=== PATIENT | female | born 1990 | race African-American/Black ===

== ENCOUNTER 2016-02-17 10:27 | Emergency (ER) ==
--- NOTE | 2016-02-17 11:42 | PROVIDER DOCUMENTATION ---
HPI-General Adult - General Chief Complaint: Back Pain Stated Complaint: RIGHT SIDE OF BODY HURTS Time Seen by Provider: 02/17/16 10:51 Source: patient Allergies/Adverse Reactions: Patient Allergies Allergy/AdvReac Type Severity Reaction Status Date / Time No Known Allergies Allergy Verified 09/30/15 00:20 - History of Present Illness -Gen Adult Nature of Presenting Problems: Pt. is 26 yof that presents with c/o low back pain and right side pain. Pt. reports symptoms began two days ago. Pt. denies any injury and reports she is currently on her period. Pt. reports the pain is sharp and is worse when she is lying flat and when she takes a deep breath. Location of Pain/Injury: reports: back. denies: head, face, mouth, neck, chest , upper extremity, hand(s), abdomen, pelvis, genitalia, lower extremity, feet, upper body, lower body, generalized Pain Radiation: reports: flank (R) Quality of Pain: reports: sharp. denies: aching, burning, cramping, dull, fullness, indigestion, pressure, stabbing, tearing, throbbing, tightness Severity: reports: moderate. denies: mild, severe Onset/Duration: reports: abrupt, 2 days ago Timing: reports: still present. denies: improving, gone now, resolved prior to arrival, intermittent, constant, changing over time, getting worse Context/Activities at Onset: reports: none. denies: recent emotional stress, recent physical stress, recent trauma history, possible bad food, cold exposure , out of country travel Modifying Factors: improves with: nothing Associated Symptoms: reports: back/neck pain, pain with inspiration. denies: anxiety, arm pain, chest pain, constipation, cough, diaphoresis, diarrhea, dizziness, EENT symptoms, fatigue, fever/chills, genitourinary problems, headaches, heartburn, joint pain, loss of appetite, malaise, muscle aches, sinus congestion/drainage, nausea, rash, seizure, shortness of breath, sensory/ motor loss, swelling/mass in abdomen, syncope, vomiting, weakness, trouble walking Similar Symptoms Previously?: Yes Recently seen or treated by another doctor?: No Review of Systems - Adult - REVIEW OF SYSTEMS - ADULT Constitutional: reports: see HPI. denies: chills, fever, fatique Eyes: reports: see HPI. denies: discharge, blurred vision, double vision, eye pain Ears, Nose, Mouth & Throat: reports: see HPI. denies: ear pain, nose pain, loose teeth, mouth swelling, throat swelling Cardiovascular: reports: see HPI. denies: chest pain, edema, irregular heart rate, palpitations, syncope Respiratory: reports: see HPI. denies: chronic cough, cough, dyspnea on exertion, pleurisy, shortness of breath, wheezing Gastrointestinal: reports: see HPI. denies: abdominal pain, hematemesis, diarrhea, nausea, vomiting Genitourinary: reports: see HPI, flank pain (Right). denies: dysuria, discharge , frequency, frequent UTI's, hematuria, hesitency, urgency Musculoskeletal: reports: see HPI, back pain. denies: bone pain, joint pain, muscle aches, neck pain Integumentary: reports: see HPI. denies: hives, hair loss, itching, rash, skin thickening Neurological: reports: see HPI. denies: ataxia, headache/migraines, numbness, seizure, slurred speech, tremors Psychiatric: reports: see HPI. denies: anxiety, depression, emotional problems , insomnia, panic attacks, suicidal thoughts Past History - Adult - PAST MEDICAL HISTORY-ADULT Review of Records: reports: Old Records Reviewed, Nursing Assessment Review, Medications Reviewed, Social history reviewed & non-contributory. Major Childhood Illnesses: reports: denies history Cardiovascular: reports: HTN Respiratory: reports: denies history Gastrointestinal: reports: denies history Obstetrical/Gynecological: reports: denies history Genitourinary: reports: denies history Musculoskeletal: reports: denies history Neurological: reports: denies history Psychiatric: reports: anxiety Endocrine/Immune: reports: denies history Other Conditions: reports: denies history - PRIOR SURGERIES/PROCEDURES Surgical/Procedure History: reports: reviewed, not pertinent - IMMUNIZATION STATUS Childhood Immunizations: UTD Flu Vaccine: See Nurse Assessment - FAMILY HISTORY Family History: reviewed, not pertinent Physical Exam-General - PHYSICAL EXAM-ADULT Initial Vital Signs Reviewed: Yes - CONSTITUTIONAL General Appearance: alert, mild distress. negative: anxious, lethargic, slow to respond, obtunded, combative - EYES Eyes: PERRL/EOMI, pink conjunctivae. negative: conjuctival exudate, scleral icterus, subconjunctival hemorrhage - HEAD, EARS, NOSE, MOUTH & THROAT HENMT: normocephalic/atraumatic, moist mucous membranes. negative: angioedema, frontal tenderness, maxillary tenderness - NECK Neck: non-tender, full range of motion, supple, normal inspection. negative: lymphadenopathy, trachial deviation, thyromegaly - RESPIRATORY Respiratory: lungs clear, normal breath sounds. negative: crackles, rales, rhonchi, stridor, wheezing - CARDIOVASCULAR Cardiovascular: normal peripheral pulses, regular rate, rhythm, no edema, no JVD , no murmur. negative: extra beats, friction rub, irregularly irregular - CHEST (BREASTS) Chest/Breast: deferred - GASTROINTESTINAL (ABDOMEN) Abdominal Exam: normal bowel sounds, non tender, soft. negative: distended, guarding, rigid, rebound, tenderness, hernia, mass - GENITOURINARY Female Genitalia/Pelvic Exam: deferred Rectal Exam: deferred Hemoccult Exam: deferred - LYMPHATIC Lymphatic: negative: no adenopathy, axilla node tender, cervical node tenderness - MUSCULOSKELETAL Back Exam: normal inspection, no CVA tenderness. negative: decreased range of motion, muscle spasm, vertebral tenderness Extremity: normal range of motion, non-tender, normal gait, normal inspection. negative: deformity, erythema, inflammation, swelling, tenderness Peripheral Pulses: radial (R): 2+, radial (L): 2+ - SKIN Integumentary: normal color, normal turgor, warm/dry. negative: cyanosis, diaphoresis, ecchymosis, erythema, jaundice, mottled, pallor, petechiae, purpura , rash, swelling, tenderness - NEUROLOGIC Neurologic: grossly normal, no motor/sensory deficits. negative: aphasia, facial droop, focal weakness, motor weakness, sensory deficit - PSYCHIATRIC Psych/Mental Status: normal mood/affect, normal thought content, normal thought process, oriented x 3. negative: anxious, paranoid, tearful Progress - PLAN OF CARE/RESULTS Progress/Plan/Lab Results: Discussed results and plan of care with patient. Patient agrees with plan and verbalizes understanding. Vital Signs Temp Pulse Resp BP Pulse Ox 02/17/16 10:49 98.3 F 79 18 146/91 98 02/17/16 10:30 97.4 F L 89 20 159/84 99 No Known Allergies Allergy (Verified 09/30/15 00:20) Ibuprofen [Motrin] 800 mg PO Q8H PRN PRN #30 tablet 09/30/15 Metronidazole [Flagyl] 500 mg PO TID #20 tablet 09/30/15 Laboratory 02/17/16 02/17/16 11:30 11:30 Urine Source CLEAN CATCH Urine Color YELLOW Urine Clarity CLEAR Urine pH 6.5 Ur Specific [place] 1.015 Urine Protein NEGATIVE Urine Ketones NEGATIVE Urine Blood 4+ Urine Nitrite NEGATIVE Urine Bilirubin NEGATIVE Urine Urobilinogen NORMAL Urine Microscopic RBC 20-40 A Urine WBC NEGATIVE Ur Epithelial Cells >10 A Urine Crystals CA OXALATE PRESENT Urine Bacteria 2+ Urine Yeast PRESENT Urine Glucose NEGATIVE Urine Test NEGATIVE Orders Category Date Time Status RENAL STONE SEARCH [CT] Stat Exams 02/17/16 12:59 Taken TEST-URINE [PREG] Stat Lab 02/17/16 11:[address] W/POSS RFLX CULT [URINALYSIS] Stat Lab 02/17/16 11:30 Completed URINE CULTURE [RM] Routine Lab 02/17/16 12:27 Ordered Ketorolac [Toradol] Med 02/17/16 13:29 Discontinued 60 mg IM NOW ONE Laboratory Tests 02/17/16 02/17/16 11:30 11:30 Urine Source CLEAN CATCH Urine Color YELLOW Urine Clarity CLEAR Urine pH 6.5 Ur Specific [place] 1.015 Urine Protein NEGATIVE Urine Ketones NEGATIVE Urine Blood 4+ Urine Nitrite NEGATIVE Urine Bilirubin NEGATIVE Urine Urobilinogen NORMAL Urine Microscopic RBC 20-40 A Urine WBC NEGATIVE Ur Epithelial Cells >10 A Urine Crystals CA OXALATE PRESENT Urine Bacteria 2+ Urine Yeast PRESENT Urine Glucose NEGATIVE Urine Test NEGATIVE - CT/MRI 1 CT Study: Renal Stone (No hydro or urolithiasis, mildly prominant RLQ nodes suggesting adenitis, normal appendix, possible 2 cm right ovarian cyst. ( [place])) CT Results: see note Departure - Departure Time of Disposition Order: 13:38 DIAGNOSIS: Adenitis Ovarian cyst Qualifiers: Laterality: right Qualified Code(s): N83.201 - Unspecified ovarian cyst, right side Disposition: HOME 01 Certified Medical Emergency: Emergent Condition: Stable Additional Instructions: Follow up with primary care physician Take medications as directed Return to ED for any concerns or worsening of symptoms ED Follow Up Instructions: You have been treated by a care provider in the Emergency Department. These instructions are being provided to you so you can have an understanding of how to care for yourself upon discharge. Upon discharge from the Emergency Department, you are responsible for making arrangements for follow-up care by a physician of your choice. Take all prescribed medications as directed. Return to the Emergency Department immediately for any new or worsening symptoms. You may call the Physician Referral phone number at [phone] to obtain a list of Physicians who are taking new patients. Prescriptions: Ibuprofen [Motrin] 800 mg PO Q8H PRN PRN #20 tablet PRN Reason: inflammation Omeprazole 20 mg PO DAILY #20 tablet.dr Cabello - Physician/ Mid-level Attestation Patient care was provided by Mid-level provider ([employer] SALES REPRESENTATIVE/PA):: Yes Mid-level provider:: Seng Foreman Mid-level documentation review:: The Mid-level provider documentation, treatment plan and medical decision making was reviewed by the physician who agrees with all treatment and medical decision making by the MLP.
[2016-02-17 12:08] LABS: URINE SOURCE CLEAN CATCH
[2016-02-17 12:15] LABS: BILIRUBIN URINE NEGATIVE (NEGATIVE); BLOOD URINE 4+ (NEGATIVE); CLARITY CLEAR (CLEAR); COLOR YELLOW; GLUCOSE URINE NEGATIVE (NEGATIVE); LEUKOCYTES URINE NEGATIVE (NEGATIVE); NITRITE URINE NEGATIVE (NEGATIVE); PH URINE 6.5; PROTEIN URINE NEGATIVE (NEGATIVE); SP GRAVITY URINE 1.015; UROBILINOGEN URINE NORMAL
[2016-02-17 12:26] LABS: URINE EPITHELIAL CELLS >10 /HPF (<10); URINE RBC 20-40 /HPF (<10)
[2016-02-17 12:27] LABS: URINE CRYSTAL CA OXALATE PRESENT /HPF; URINE CULTURE PL NEEDED? YES
[2016-02-17] MEDS ORDERED: TORADOL IM ONE (13:29)
--- NOTE | 2016-02-17 14:04 | Diag Imaging Result Document ---
PROCEDURE NAME: RENAL STONE SEARCH - 02/17/[address]: INDICATION: Right flank pain. FINDINGS: There is no hydronephrosis or urolithiasis. The appendix appears normal. There are mildly prominent right lower quadrant lymph nodes, which is a nonspecific finding, but may represent adenitis. There is hypodensity in the region of the right adnexa, which may represent an ovarian cyst measuring up to 2 cm. There is no free fluid within the abdomen or pelvis. No bowel distention. No free air. Solid visceral organs are unremarkable on this noncontrasted study. IMPRESSION: 1. Prominent right lower quadrant lymph nodes may represent mesenteric adenitis. Normal appendix. 2. Possible right ovarian cyst, measuring up to 2 cm. 3. No urolithiasis or hydronephrosis. [facility]
[2016-02-17 14:50] VITALS: BP 145/89
== END 2016-02-17 14:15 | disposition home or self-care (01) ==
LOC: P.ED 10:27
DX: N83.201 Unspecified ovarian cyst, right side (principal); I88.9 Nonspecific lymphadenitis, unspecified; M54.5 Low back pain; R10.9 Unspecified abdominal pain; R07.1 Chest pain on breathing; I10 Essential (primary) hypertension
CPT/HCPCS: 74176; 81001; 81025; 87088; 96372; J1885